=== PATIENT | male | born 1995 | race Caucasian/White ===

== ENCOUNTER 2020-04-12 19:18 | Emergency (ER) | payer MEDICAID | END 2020-04-12 20:03 | disposition left against medical advice (07) | LOC: ER 19:18 | DX: Z53.21 Procedure and treatment not carried out due to patient leaving prior to being seen by health care provider (principal) ==

== ENCOUNTER 2020-04-30 07:41 | Emergency (ER) | payer MEDICAID ==
[~2020-04-30] VITALS: Ht 167.6 cm; Wt 82.0 kg
[2020-04-30 07:46] VITALS: BP 122/72
[2020-04-30] MEDS ORDERED: MORPHINE SULFATE 4 MG/ML CPJ (NOT FOR IM USE) IV ONE (08:30)
== END 2020-04-30 10:05 | disposition home or self-care (01) ==
LOC: ER 07:41
DX: S82.52XA Displaced fracture of medial malleolus of left tibia, initial encounter for closed fracture (principal); M96.89 Other intraoperative and postprocedural complications and disorders of the musculoskeletal system; X58.XXXA Exposure to other specified factors, initial encounter; Y93.89 Activity, other specified; Y92.89 Other specified places as the place of occurrence of the external cause; Y99.8 Other external cause status
CPT/HCPCS: 29515; 73610; 96374; 99283; J2270

== ENCOUNTER 2020-05-04 17:10 | Emergency (ER) | payer MEDICAID ==
[~2020-05-04] VITALS: Ht 167.6 cm; Wt 65.0 kg
[2020-05-04] MEDS ORDERED: TRAMADOL 50MG TABLET PO ONE (18:15)
[2020-05-04 18:25] VITALS: BP 121/63
== END 2020-05-04 18:31 | disposition home or self-care (01) ==
LOC: ER 17:10
DX: Z76.0 Encounter for issue of repeat prescription (principal); Z87.81 Personal history of (healed) traumatic fracture
CPT/HCPCS: 99283

== ENCOUNTER 2020-10-11 12:08 | Emergency (ER) | payer MEDICAID ==
[~2020-10-11] VITALS: Ht 172.7 cm; Wt 85.0 kg
[2020-10-11 12:16] VITALS: BP 127/68
[2020-10-11] MEDS ORDERED: IBUPROFEN 600MG TABLET PO ONE (13:30)
== END 2020-10-11 14:23 | disposition home or self-care (01) ==
LOC: ER 12:08
DX: M25.572 Pain in left ankle and joints of left foot (principal); R21 Rash and other nonspecific skin eruption; Z98.890 Other specified postprocedural states
CPT/HCPCS: 73610; 99283